=== PATIENT | male | born 1955 | race American Indian/Alaskan Native ===

== ENCOUNTER → 2018-07-12 10:07 | Day surgery (SDC) | payer OTHER ==
[~2018-07-12 10:07] MED LIST: Acetaminophen TAB* 325 MG PO PRN; Buffered Lidocaine 1% SYRIN* 1 ML/SYRINGE INTRADERM ONE; Bupivacaine 0.25% SDV PF* 10 ML VIAL INJ ONE; Dexamethasone IV* 4 MG/ML 1 ML (4 MG) ONE; DiMENhydriNATE IV* 50 MG/ML VIAL IV PUSH PRN; EPHEDrine (Pressors)* 50 MG/ML VIAL ONE; Glycopyrrolate IV* 0.2 MG/ML 1 ML VIAL ONE; Ketorolac INJ* 30 MG/ML 1 ML VIAL ONE; Lactated Ringers 1000 ML Bag* 1,000 ML IV SCH; Lidocaine 1% INJ* 10 MG/ML 30 ML SDV ONE; Lidocaine 2% PF * 5 ML VIAL ONE; Metoclopramide IV* 5 MG/ML 2 ML VIAL ONE; Midazolam* 1 MG/ML 2 ML VIAL (2 MG) ONE; Naloxone* 0.4 MG/ML 1 ML VIAL IV PRN; Neostigmine Methylsulfate* 1 MG/ML 10 ML VIAL (1 mg/ml) ONE; Ondansetron INJ* 2 MG/ML VIAL ONE; Propofol* 10 MG/ML 20 ML BTL ONE; Rocuronium* 10 MG/ML VIAL ONE; ceFAZolin 2 GM in NS PREMIX(*) 2 GM/100 ML BAG IVPB ONE; fentaNYL* 50 MCG/ML 2 ML VIAL (100 MCG VIAL) IV PRN; fentaNYL* 50 MCG/ML 2 ML VIAL (100 MCG VIAL) ONE; oxyCODONE TAB* 5 MG TAB PO PRN
[2018-07-12 15:06] VITALS: BP 138/75
--- NOTE | 2018-07-12 22:43 | OP ---
DATE OF OPERATION: 07/12/18 - [facility] DATE OF : 59 SURGEON: Dr. Degroot. ANESTHESIA: General with local infiltration. PRE-OP DIAGNOSIS: Left Shen's deformity. POST-OP DIAGNOSIS: Left Shen's deformity. OPERATIVE PROCEDURE: Removal of the left foot Shen's deformity. ESTIMATED BLOOD LOSS: Less than 10 cc. IV FLUIDS: LR 1000 cc. DRAINS: None. SPECIMENS: Bone from the posterior aspect of the left heel. DESCRIPTION OF PROCEDURE: The patient was taken to the operating room and was placed in a lateral position. A time-out was called and OR team agreed. The left foot was then blocked with 10 cc of 1% lidocaine plain in the lateral aspect of the ankle. The foot was then prepped and draped in a sterile manner. The left foot was exsanguinated with an Esmarch bandage and the cuff was then inflated to 250 mmHg. Attention was then paid to the lateral aspect of the left heel. On the superior aspect just slightly anterior to the insertion of the Achilles tendon, was a painful bony prominence, which is the Shen's exostosis. I made a curvilinear L-type incision on the lateral aspect of the heel. This was followed by sharp and blunt dissection from the epidermis, dermis, subcutaneous tissue, deep fascia and down to the periosteum of the lateral aspect of the calcaneus. I then went ahead and dissected the periosteum of the bone. I gently dissected the lateral aspect of the attachment of the Achilles tendon without detaching the entire tendon and allowed me to gain access to the exostosis. I located the exostosis. It was in a dorsal lateral position in the superior aspect of the calcaneus just slightly anterior to the insertion of the Achilles tendon. I went ahead and took a sagittal saw and resected the Shen's deformity. I removed a piece of bone. I sent that to Pathology for tissue microscopy. I went ahead and irrigated the site. I then used a fluoroscopy to confirm that I removed enough of the exostosis and confirmed that I did so. This completed the procedure. I went ahead and irrigated the site, ligated any blood vessels that need ligation. I went ahead and closed the wound in a layered anatomical fashion. The deep tissues were closed with 3-0 Vicryl and the skin was closed with 4-0 nylon. I went ahead and infiltrated the area with postop anesthesia consisting of 8 cc of 0.25% Marcaine plain as well as 8 mg or 2 cc of dexamethasone phosphate. This completed the procedure. The cuff was deflated. The foot was then placed in a dry sterile dressing. The patient was taken to Recovery in stable condition and was later discharged in stable condition as well. I will have the patient come back to my office in 3 days. [id number]/[facility] #: [id number] YASMEEN
== END | disposition home or self-care (01) ==
LOC: OR 10:07
PROVIDERS: ATTEND Podiatrist
DX: M92.62 Juvenile osteochondrosis of tarsus, left ankle (principal); I10 Essential (primary) hypertension; R01.1 Cardiac murmur, unspecified; Z87.891 Personal history of nicotine dependence
CPT/HCPCS: 76000; 88304; 88311; J0690; J1100; J1885; J2250; J2405; J2704; J2710; J2765; J3010; J3490